=== PATIENT | female | born 1985 | race Caucasian/White ===

== ENCOUNTER 2018-06-18 18:31 | Inpatient (IN) ==
[~2018-06-18 18:31] MED LIST: Diphtheria/Tetanus/Pertussis Vaccine Inj 0.5 ML Syringe IM ONE; Measles/Mumps/Rubella Vaccine Inj 0.5 ML Vial SQ ONE
[2018-06-18] MEDS ORDERED: fentaNYL Citrate Inj 100 MCG/2 ML Ampul IV.PUSH PRN ×2 (19:05)
[2018-06-18] MEDS ORDERED: Oxytocin 30 Units/500ml Premix 30 UNITS/500 ML BAG IV.SIG ONE (19:05)
[2018-06-18] MEDS ORDERED: Naloxone Inj 0.4 MG/ML Vial IV.PUSH PRN ×2 (19:05→23:52)
[2018-06-18] MEDS ORDERED: Sod Chloride 0.9% Inj 1,000 ML IV.CONT PRN (19:05)
[2018-06-18] MEDS ORDERED: Sodium Chlor 0.9% Inj 500 ML IV.SIG PRN (19:05)
[2018-06-18] MEDS ORDERED: Citric Acid/Sodium Citrate Liq 30 ML UDC PO SCH (19:15)
[2018-06-18] MEDS ORDERED: fentaNYL 2MCG-Bupiv 0.125% Epi 150 ML EPIDURAL ONE (19:45)
[2018-06-18 19:58] LABS: Bilirubin,Urine Negative (Negative); Clarity,Urine Clear (Clear); Color,Urine Straw (Yellw/Straw); Glucose,Urine (UA) Negative (Negative); Leukocyte Esterase,Urine Negative (Negative); Mucus,Urine Few /lpf (Occasional); Nitrite,Urine Negative (Negative); Squamous Epithelial Cell,Urine <1 /hpf (0-5)
[2018-06-18 20:01] LABS: Baso % (Auto) 0.3 % (0.0-2.0); Eos % (Auto) 0.2 % (0.0-4.0); Hematocrit 38.5 % (35.0-46.0); Hemoglobin 12.8 gm/dL (11.6-15.3); Lymph # (Auto) 1.7 th/mm3 (1.0-4.8); Mean Corpuscular HGB Conc 33.3 % (32.0-36.0); Mean Corpuscular Volume 93.1 fL (80.0-100.0); Mean Platelet Volume 10.7 fL (7.0-11.0); Mono # (Auto) 0.7 th/mm3 (0.0-0.9); Mono % (Auto) 5.5 % (0.0-8.0); Neut # (Auto) 10.6 th/mm3 (1.8-7.7); Platelet Count 186 th/mm3 (150-450); Red Blood Count 4.14 mil/mm3 (4.00-5.30); Red Cell Distribution Width 14.5 % (11.6-17.2); White Blood Count 13.1 th/mm3 (4.0-11.0)
[2018-06-18 20:03] LABS: Amphetamine Urine With Conf Neg (Neg); Benzodiazepine Urine With Conf Neg (Neg)
[2018-06-18] MEDS ORDERED: Lidocaaine 1.5%/Epinephrine 1:200,000 PF Inj 5 ML Amp ONE (20:18)
[2018-06-18] MEDS ORDERED: Lidocaine PF 1% Inj 5 ML Vial ONE (20:18)
[2018-06-18] MEDS ORDERED: fentaNYL Citrate Inj 100 MCG/2 ML Ampul EPIDURAL ONE (21:45)
[2018-06-18] MEDS ORDERED: fentaNYL 2MCG-Bupiv 0.125% Epi 150 ML EPIDURAL PRN (21:45)
[2018-06-18] MEDS ORDERED: Witch Hazel 50%/Glyderin 12.5% 40 Pad Jar RECTAL PRN (23:52)
[2018-06-18] MEDS ORDERED: Oxytocin 30 Units/500ml Premix 30 UNITS/500 ML BAG IV.CONT PRN (23:52)
[2018-06-18] MEDS ORDERED: Benzocaine 20% Top Spray 60 ML Can TOPICAL PRN (23:52)
[2018-06-18] MEDS ORDERED: Zolpidem Tartrate 5 MG Tablet PO PRN (23:52)
[2018-06-18] MEDS ORDERED: Bisacodyl 10 MG Supp RECTAL PRN (23:52)
[2018-06-19] MEDS: Acetaminophen 325 MG Tablet PO PRN ×3 (10:19→22:19)
[2018-06-19] MEDS: Prenatal Vit/Ca/Iron/Folic Acid Tablet PO SCH (10:19)
[2018-06-19] MEDS: Senna/Docusate Sodium 8.6/50 MG Tablet PO SCH ×2 (10:23→22:22)
[2018-06-20] MEDS: Acetaminophen 325 MG Tablet PO PRN ×2 (03:29→08:24)
[2018-06-20] MEDS: Senna/Docusate Sodium 8.6/50 MG Tablet PO SCH (08:24)
[2018-06-20] MEDS: Prenatal Vit/Ca/Iron/Folic Acid Tablet PO SCH (08:24)
== END 2018-06-20 14:20 | disposition home or self-care (01) ==
LOC: HOBED 18:31 → H2E 19:20 → H1EA 06-19 01:18
PROVIDERS: ADMIT Obstetrics & Gynecology; ATTEND Obstetrics & Gynecology